=== PATIENT | male | born 1970 | race Caucasian/White ===

== ENCOUNTER → 2017-08-08 | Outpatient (CLI) | payer BC ==
[~2017-08-08] MED LIST: TESSALON PERLE100 MG PO; ULTRAM50 MG PO
== END | disposition home or self-care (01) ==
LOC: CDC 12:00
DX: Z01.810 Encounter for preprocedural cardiovascular examination (principal); M75.112 Incomplete rotator cuff tear or rupture of left shoulder, not specified as traumatic; M75.42 Impingement syndrome of left shoulder; S43.432D Superior glenoid labrum lesion of left shoulder, subsequent encounter
CPT/HCPCS: 93000